=== PATIENT | male | born 1995 | race Two or more races ===

== ENCOUNTER 2019-06-10 05:20 | Emergency (ER) | payer MEDICAID ==
[~2019-06-10] VITALS: Ht 172.7 cm; Wt 100.0 kg
[2019-06-10] MEDS ORDERED: IPRATROPIUM BROMIDE 0.5 MG/2.5 ML NEB SOLUTION NEB ONE ×2 (05:45→06:30)
[2019-06-10] MEDS ORDERED: ALBUTEROL SULFATE 2.5 MG/0.5 ML NEB SOLUTION NEB ONE (05:45)
[2019-06-10] MEDS ORDERED: ALBU8HFA IH (06:06)
[2019-06-10] MEDS ORDERED: ALBUTEROL SULFATE 5 MG/ML 20 ML NEB SOLN [BULK] NEB ONE (06:30)
[2019-06-10] MEDS ORDERED: PredniSONE 20 MG TABLET PO ONE (06:30)
[2019-06-10] MEDS ORDERED: 0.9% SODIUM CHLORIDE 15 ML NEB SOLUTION NEB ONE (06:36)
[2019-06-10 08:40] VITALS: BP 115/64
== END 2019-06-10 08:53 | disposition home or self-care (01) ==
LOC: EMS 05:20
DX: J45.901 Unspecified asthma with (acute) exacerbation (principal); Z79.899 Other long term (current) drug therapy
CPT/HCPCS: 94640; 99284; J7512